=== PATIENT | female | born 1980 | race Caucasian/White ===

== ENCOUNTER 2020-05-24 09:44 | Outpatient (CLI) | payer BC, SELFPAY ==
--- NOTE | ~2020-05-24 | MMUS_ITS ---
EXAMINATION: MM diagnostic khushi BI w linsey, US breast LT limited HISTORY: History of cyclic left breast pain TECHNIQUE: Craniocaudal, mediolateral, and mediolateral oblique 3-D tomosynthesis images of the adele ts were performed and synthetic 2-D images were generated. CAD analysis was submitted and interpreted . High resolution limited left breast ultrasound was performed. COMPARISON: 04/27/2014 BREAST PARENCHYMAL COMPOSITION: The breasts are heterogeneously dense, which may obscure small masses . FINDINGS: MAMMOGRAPHIC FINDINGS: There is no evidence of suspicious mass, calcification, or architectural distortion in either breast to suggest malignancy. There has been no suspicious interval change. No mammographic correlate is id entified for the reported left breast pain. ULTRASOUND: There is no evidence of focal abnormal solid or cystic lesion in the vicinity of the patient's report ed left breast pain IMPRESSION: 1. No specific mammographic or sonographic correlate is identified for the patient's reported left br east pain. Further evaluation at this time should be based on clinical assessment. Continued follow-u p physical examination is recommended. 2. Recommend routine screening mammography in one year. BI-RADS Category 1: Negative Reviewed, dictated and finalized at location A. IMPRESSION: 1. No specific mammographic or sonographic correlate is identified for the elayne ent's reported left breast pain. Further evaluation at this time should be base d on clinical assessment. Continued follow-up physical examination is recommend ed. 2. Recommend routine screening mammography in one year. BI-RADS Category 1: Negative
== END 2020-05-24 09:45 ==
PROVIDERS: Visit Provider Nurse Practitioner
DX: N64.4 Mastodynia (principal)
CPT/HCPCS: 76642; 77062; 77066; G0279

== ENCOUNTER → 2023-02-19 12:43 | Outpatient (CLI) | payer BC, SELFPAY ==
--- NOTE | ~2023-02-19 | MM_ITS ---
EXAMINATION: MM screening khushi BI w linsey HISTORY: Screening mammogram TECHNIQUE: Craniocaudal and mediolateral oblique 3-D tomosynthesis images were obtained and synthetic 2-D images were generated. CAD analysis was submitted and interpreted. COMPARISON: 05/24/2020 diagnostic bilateral mammogram and limited left breast ultrasound examination BREAST PARENCHYMAL COMPOSITION: There are scattered areas of fibroglandular density. FINDINGS: There is no evidence of suspicious mass, calcification, or architectural distortion to sugg est malignancy in either breast. There has been no suspicious interval change. IMPRESSION: 1. No mammographic evidence of malignancy. 2. Recommend routine screening mammography in one year. BI-RADS Category 1: Negative Reviewed, dictated and finalized at location A.
== END ==
PROVIDERS: PCP Nurse Practitioner Family; Visit Provider Obstetrics & Gynecology Gynecology
DX: Z12.31 Encounter for screening mammogram for malignant neoplasm of breast (principal)
CPT/HCPCS: 77063; 77067

== ENCOUNTER 2023-07-28 11:17 | Outpatient (CLI) | payer BC, SELFPAY ==
--- NOTE | ~2023-07-28 | US_ITS ---
EXAMINATION: US pelvic complete DATE: 07/28/2023 12:00 INDICATION: Menorrhagia Comparison:No prior studies for comparison. TECHNIQUE: Multiple transabdominal sonographic images of the pelvis performed. FINDINGS: The uterus measures 10.1 x 5 x 6.5 cm. The endometrial complex measures 8 mm. The right ovary measures 3.7 x 2.5 x 3.2 cm and the left ovary measures 4.3 x 3.4 x 3 cm. There is a 2 cm right ovarian cyst. There are small follicles in each ovary. Normal doppler signal in both ovari es. There is no free fluid in the pelvis. There are no abnormal masses seen on either side. IMPRESSION: 1. Right ovarian cyst measuring 2 cm. Reviewed, dictated and finalized at location A.
== END 2023-07-28 11:18 ==
PROVIDERS: PCP Nurse Practitioner; Visit Provider Nurse Practitioner
DX: N92.0 Excessive and frequent menstruation with regular cycle (principal); N83.201 Unspecified ovarian cyst, right side
CPT/HCPCS: 76856

== ENCOUNTER 2025-06-23 09:59 | Outpatient (CLI) | payer BC, SELFPAY ==
--- NOTE | ~2025-06-23 | MM_ITS ---
EXAMINATION: MM screening khushi BI w linsey HISTORY: Screening TECHNIQUE: Craniocaudal and mediolateral oblique 3-D tomosynthesis images were obtained and synthetic 2-D images were generated. CAD analysis was submitted and interpreted. COMPARISON: Comparison to multiple prior studies sequentially, with oldest reviewed study dated 05/24. BREAST PARENCHYMAL COMPOSITION: Not dense: There are scattered areas of fibroglandular density. FINDINGS: There is no evidence of suspicious mass, calcification, or architectural distortion to sugg est malignancy in either breast. There has been no suspicious interval change. IMPRESSION: 1. No mammographic evidence of malignancy. 2. Recommend routine screening mammography in one year. BI-RADS Category 1: Negative Reviewed, dictated and finalized at location A.
--- OUTSIDE RECORDS SUMMARY | 2025-06-23 10:13 | XMS_ITS | Continuity of Care Document ---
Author Organization [facility] Address [address] [place] [address] Phone Care Team Providers Care Storage Specialist Name Role Phone Clinton Andrew Unavailable Unavailable Procedures Procedure Date Office/outpatient Visit, [facility] Advance Directives Directive Yes / No Effective Date File Name No Information Encounters Encounter Description Practice Location Reason(s) For Visit Diagnoses Date Provider Providers Copied on Encounter Office/outpat ient Visit, [facility], [address], [place], [place], [id number], [place] tel:[phone] [facility] [place] [facility] [place] No Information [address] Kamran Clinton. [address], [place], [address], [place]. tel:[phone] Family History Family Member Type Diagnosis Age At Onset No Information Payers Payer name Insurance type Covered constitution party ID Authoriza tion(s) No Information Social History Type Description Quantity Date Captured Comments Sex Female Smoking Status No Information Chief Complaint And Reason For Visit No Information Reason For Referral Reason For Referral No Information History Of Present Illness Encounter Date Complaint History Of Prese nt Illness No Information Functional Status Date Functional Assessmen t No Information Instructions Date Instruction Additional Infor mation No Information Assessments Type Assessment Date No Information Patient Care Teams Name Effective Dates (start - stop) Status Members No Information
--- OUTSIDE RECORDS SUMMARY | 2025-06-23 10:13 | XMS_ITS | Clinical Summary ---
Author Organization [facility] Address [address] [place] [id number] Care Team Providers Care Biodiesel Processing Technician Name Role Phone Unavailable Primary Care Provider Unavailabl e Social History Tobacco Use Types Packs/Day Years Used Date Smoking Tobacco: Never Assessed Comments Unknown Sex and Gender Information Value Date Recorded Sex Assigned at Not on file Legal Sex Female 5:06 PM CDT Gender Identity Not on file Sexual Orientation Not on file Plan of Treatment Health Maintenance Due Date Last Done Comments Cervical Cancer Screening Pa p Smear (Age 30 to 64) Every 3 Years 1980 Colorectal Cancer Screening Colonoscopy (10 Years) 1980 Annual Physical 02/27/1983 Hepatitis C 02/27/1998 DTaP, Tdap and Td Vaccines ( 1 - Tdap) 02/27/1999 Hepatitis B Vaccines (1 of 3 - 19+ 3-dose series) 02/27/1999 HPV Vaccines (1 - 3-dose SCD M series) 02/27/2007 Cervical Cancer Screening Pa p with HPV Testing (Age 30 to 64) Every 5 Years 02/27/2010 Cervical Cancer Screening with HPV 02/27/2010 Mammogram Screening 2020 COVID-19 Vaccine (2023-2 5 season) 2024 Meningococcal B Vaccine Aged Out No l onger eligible based on patient's age to complete this topic Meningococcal Vaccine Aged Out No david marjorie eligible based on patient's age to complete this topic Pneumococcal Vaccine: Pediat rics (0 to 5 Years) and At-Risk Patients (6 to 49 Years) Aged Out No longer eligible b ased on patient's age to complete this topic RSV Immunizations Under 20 Months Aged Out No longer eligible based on patient's age to complete this topic
== END 2025-06-23 10:00 | disposition home or self-care (01) ==
LOC: ANHIMG 10:01
PROVIDERS: PCP Nurse Practitioner; Visit Provider Nurse Practitioner
DX: Z12.31 Encounter for screening mammogram for malignant neoplasm of breast (principal)
CPT/HCPCS: 77063; 77067